=== PATIENT | female | born 1975 | race Caucasian/White ===

== ENCOUNTER → 2017-09-12 | Outpatient (CLI) | payer BC | LOC: BICMAMMO 14:15 | PROVIDERS: ATTEND Family Medicine | DX: Z12.31 Encounter for screening mammogram for malignant neoplasm of breast (principal) | CPT/HCPCS: 77063; 77067; G0202 ==

== ENCOUNTER 2018-12-29 12:27 | Outpatient (CLI) | payer BC ==
--- NOTE | 2018-12-29 15:18 | ULT ---
SOFT TISSUE ULTRASOUND OF THE NECK: INDICATIONS: Adenopathy. Status post thyroidectomy. Followup. COMPARISON: 08/18/2017 FINDINGS: Redemonstration of lymph nodes of the neck, bilaterally, which by short axis dimensions are not patho logically enlarged. The predominant lymph node, located within the left neck, measures approximately 1.2 x 0.5 cm, with a preserved architecture. The thyroid gland is not visualized, correlative to hi story of prior thyroidectomy. IMPRESSION: No pathologically enlarged lymph nodes of the neck are identified. POS: [facility]
== END 2018-12-29 12:28 | disposition home or self-care (01) ==
LOC: BICULT 12:27
PROVIDERS: ATTEND Internal Medicine Endocrinology, Diabetes & Metabolism
DX: C73 Malignant neoplasm of thyroid gland (principal); E89.0 Postprocedural hypothyroidism
CPT/HCPCS: 76536